=== PATIENT | female | born 1955 ===

== ENCOUNTER 2024-06-15 05:19 | Day surgery (SDC) | payer OTHER ==
[2024-06-12 10:21] VITALS: BP 143/81
[2024-06-12 10:23] LABS: URINE APPEARANCE Cloudy; URINE BILIRRUBIN Negative (NEGATIVE); URINE BLOOD Negative; URINE COLOR Yellow; URINE GLUCOSE Negative (NEGATIVE); URINE KETONE Negative (NEGATIVE); URINE LEUKOCYTE Large; URINE NITRATE Negative; URINE PROTEIN Negative (NEGATIVE); URINE UROBILINOGEN 0.2 E.U./dl
[2024-06-12 10:24] LABS: HEMOGLOBIN 12.2 g/dL (12.0-15.00); MEAN CORPUSCULAR HEMOGLOBIN 29.5 pg (27.00-32.0); MEAN CORPUSCULAR HGB CONC 33.9 g/dl (32.0-36.0); PLATELET COUNT 290 K/uL (150-450); RED BLOOD COUNT 4.13 M/uL (4.00-6.00); RED CELL DISTRIBUTION WIDTH 14.6 % (11.5-14.5)
[2024-06-12 10:27] LABS: URINE BACTERIA 972.9 uL (0.0-1933); URINE EPITHELIAL CELLS 75.3 uL (0.0-38.8); URINE RBC 4.5 uL (0.0-20.8); URINE WBC 220.3 uL (0.0-23.2)
[2024-06-12 10:49] LABS: INR 0.98; PARTIAL THROMBOPLASTIN TIME 26.5 SECONDS (22.0-34.0); PROTHROMBIN TIME 10.7 SECONDS (9.0-11.5)
[2024-06-12 10:51] LABS: URINE CAST 0.44 uL (0.0-1.40)
[2024-06-12 10:53] LABS: URINE EPITHELIAL CELLS 0-4 /HPF
[2024-06-12 11:00] LABS: CALCIUM 9.5 mg/dL (8.5-10.1); CREATININE SERUM 0.68 mg/dL (0.55-1.02); GFR 86.04; PHOSPHOROUS 2.6 mg/dL (2.5-4.9); POTASSIUM 4.16 mEq/L (3.5-5.1)
[~2024-06-15] VITALS: Ht 157.5 cm; Wt 113.4 kg
[~2024-06-15 05:19] MED LIST: AMLODIPINE-OLM1 EAC2 PO; COZAAR25 MG PO; HORIZANT300 MG PO; HORIZANT600 MG PO; LIPITOR20 MG PO; XOPENEX HFA15 GM IH
[2024-06-15] MEDS ORDERED: CEFAZOLIN SODIUM 1,000 MG VIAL IV SCH (10:15)
[2024-06-15] MEDS ORDERED: LIDOCAINE HCL 1%/EPINEPHRINE 20ML VIAL IJ ONE (10:15)
[2024-06-15] MEDS ORDERED: POVIDONE-IODINE 118 ML BOTT TOP ONE (10:15)
[2024-06-15] MEDS ORDERED: EPINEPHRINE HCL/PF 1 MG/ML AMPUL IR ONE (10:30)
[2024-06-15] MEDS ORDERED: CEPHALEXIN500 M1 PO (10:42)
[2024-06-15] MEDS ORDERED: CIPROFLOXACIN2.5 ML OTIC (10:43)
[2024-06-15] MEDS ORDERED: MORPHINE SULFATE 4 MG/ML VIAL IV ONE (13:30)
== END 2024-06-15 15:15 | disposition home or self-care (01) ==
LOC: CIR.AMB 05:19
PROVIDERS: ATTEND Otolaryngology Otology & Neurotology
DX: H80.91 Unspecified otosclerosis, right ear (principal); H90.A11 Conductive hearing loss, unilateral, right ear with restricted hearing on the contralateral side